=== PATIENT | male | born 1965 | race Hispanic/Latino ===

== ENCOUNTER → 2019-03-10 | Outpatient (CLI) | payer OTHER ==
--- NOTE | 2019-03-11 16:40 | MRI ---
Study: MRI of the Left Knee. Indication: LEFT KNEE PAIN Technique: Multiplanar, multi sequence MRI of the left knee was obtained without intravenous contrast. Comparison: None. Findings: ACL and PCL intact. Lateral collateral ligament intact. MCL is lax and bowed indicating sequela of a remote MCL sprain. No acute tear. Subtle vertical undersurface tearing posterior horn/root medial meniscus with radial free edge tearing and extrusion of the body. Superior surface fraying throughout the posterior horn and root. Irregular grade 3-4 chondral loss throughout the majority of the medial compartment with cortical remodeling and subchondral marrow change anteriorly. Mild discoid configuration lateral meniscus with scattered degenerative signal. Grade 2 and mild grade 3 chondral thinning throughout the lateral compartment. Tendinosis quadriceps insertion and patellar tendon origin with mild interstitial fissuring quadriceps tendon insertion. Patella normally located. There is grade 2-3 chondrosis medial margin medial patellar facet. Subtle grade 3/4 chondrosis junction medial and midline femoral trochlea superiorly. Moderate size knee effusion. No acute fracture. Impression: Subtle complex multidirectional tearing medial meniscus as above. Mild discoid configuration lateral meniscus with scattered degenerative signal. 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 Moderate size knee effusion. Tendinosis quadriceps tendon insertion and patellar tendon origin with mild interstitial fissuring of the quadriceps tendon insertion. Electronically signed by: Mukund Arnold MD 03/11/2019 4:38 PM CDT
== END ==
LOC: MRI 12:47
PROVIDERS: ATTEND General Practice
DX: S83.242A Other tear of medial meniscus, current injury, left knee, initial encounter (principal); M22.42 Chondromalacia patellae, left knee; M76.892 Other specified enthesopathies of left lower limb, excluding foot; Q68.6 Discoid meniscus